=== PATIENT | male | born 1955 | race Caucasian/White ===

== ENCOUNTER 2021-03-01 12:40 | Inpatient (IN) | payer MEDICARE, OTHER ==
[~2021-03-01] VITALS: Ht 175.3 cm; Wt 81.6 kg
[2021-03-01] MEDS ORDERED: FLUO10CA29 PO (16:40)
[2021-03-01] MEDS ORDERED: LAMO200T10 PO (16:40)
[2021-03-01] MEDS ORDERED: LEVO25TA7 PO (16:40)
[2021-03-01] MEDS ORDERED: FINA5TAB11 PO (16:40)
[2021-03-01] MEDS ORDERED: TAMS-12 PO (16:40)
[2021-03-01] MEDS ORDERED: QUET100T PO (16:40)
[2021-03-01] MEDS ORDERED: QUET25TA PO (16:40)
[2021-03-01 18:10] VITALS: BP 155/52
[2021-03-01] MEDS ORDERED: MAGNESIUM HYDROXIDE 30 ML UDC PO PRN (18:30)
[2021-03-01] MEDS ORDERED: ACETAMINOPHEN 325 MG TABLET PO PRN (18:30)
[2021-03-01] MEDS ORDERED: LORAZEPAM 0.5 MG TABLET PO PRN (18:30)
[2021-03-01] MEDS ORDERED: BLOOD SUGAR DIAGNOSTIC 1 EACH STRIP IN ONE (18:30)
[2021-03-01] MEDS ORDERED: MAG HYDROX/AL HYDROX/SIMETH 30 ML UDC PO PRN (18:30)
--- NOTE | 2021-03-01 18:40 | NUR ---
Pt. arrived in the unit via ambulance and transported via a gurney with belongings. Pt. admitted on 5150 for DTS and GD. Per hold, pt. overdosed on Seroquel, admitted having severe anxiety and having difficulty functioning. V/S taken and contraband done. Dr. Avina made aware of the admission and with orders. Will endorse to the incoming shift for the completion of the admission.
[2021-03-01 20:00] VITALS: BP 153/66
[2021-03-01] MEDS ORDERED: HYDR-500 PO (20:09)
[2021-03-01] MEDS ORDERED: ZIPR20CA2 PO (20:09)
[2021-03-01 20:20] VITALS: BP 153/66
[2021-03-01] MEDS: clonazePAM 0.5 MG TABLET PO SCH (21:35)
--- NOTE | 2021-03-01 21:45 | NUR ---
RN NOTE PATIENT SEEN BY DR. CANALES WITH NEW ORDERS TO START KLONOPIN & RISPERDAL ORDERED. ORDERS NOTED & CARRIED OUT. WILL CONTINUE TO MONITOR.
[2021-03-01] MEDS: risperiDONE 1 MG TABLET PO SCH (22:01)
--- NOTE | 2021-03-01 22:15 | NUR ---
INFRASTRUCTURE TECH NOTES: ADMITTED THIS 65 Y/O MALE PATIENT FROM [facility] TO [facility] ON 5150 HOLD, PER HOLD GRAVELY DISABLED AND DANGER TO HIMSELF. PER HOLD, DEVON STATED," I TOOK TOO MANY SEROQUEL. I HAD LOT OF THINGS HAPPENING AND I WAS WALKING BACK AND FORTH ON THE SIDEWALK. I WAS HAVING A LOT OF ANXIETY ABOUT SEEING MY SISTER. I HAVE HAD A WISH BEFORE AND I AM HAVING PROBLEMS FUNCTIONING." PATIENT APPEARS ANXIOUS, DEPRESSED AND IS CURRENTLY IMPULSIVE AND UNSAFE FOR DISCHARGE.UPON FACE TO FACE ASSESSMENT, PATIENT IS A & O X 3 WITH PERIODS OF FORGETFULNESS (PER PATIENT). NOTED TO BE DISHEVELED, UNKEMPT, ANXIOUS, LABILE, RESTLESS, IMPULSIVE, HYPERVERBAL AT TIMES BUT REDIRECTABLE. PATIENT DENIES SI/HI AT THIS TIME, STATED," I DIDN'T TAKE TOO MANY SEROQUEL ON PURPOSE, I WAS TRYING TO CALM MYSELF DOWN DUE TO ANXIETY." PATIENT IS WILLING TO CONTRACT FOR SAFETY AT THIS TIME. PT. HAS POOR INSIGHT, POOR JUDGEMENT, PATIENT SIGNED ALL CONSENT FORMS. BOTH MD AWARE AND NOTIFIED OF THE ADMISSION, BELONGINGS CONTRABAND WERE DONE , NURSING ASSESSMENT DONE, PT. RIGHTS DISCUSS BY ENERGY CONSERVATION SPECIALIST, PROVIDED THE PT. WITH HANDBOOK AND MEDICATIONS GUIDE, ENVIRONMENTAL SAFETY CHECK DONE, NO ACUTE DISTRESS NOTED. NO C/O PAIN VERBALIZED AT THIS TIME. ENCOURAGED PT. VERBALIZED ANY FEELING CONCERN TO STAFF, ORIENTED TO UNIT POLICY, VITAL SIGNS WNL, WILL CONTINUE TO MONITOR FOR Q15 MIN FOR SAFETY, MOOD AND BEHAVIOR.
--- NOTE | 2021-03-01 23:00 | NUR ---
RN NOTE LUNA SUAREZ, PATIENT'S YOUNGER SISTER CALLED & SPOKE TO CHARGE NURSE. LUNA IS AWARE ABOUT PATIENT'S ADMISSION AT [facility].
--- NOTE | 2021-03-02 01:30 | NUR ---
MED RECON DONE BY CHELSEA HERRERA.
--- NOTE | 2021-03-02 04:08 | NUR ---
RN NOTE PATIENT HAS BEEN SLEEPING COMFORTABLY. NO ACUTE CHANGES NOTED.
[2021-03-02 07:51] LABS: CHOLESTEROL 135 mg/dL (<200); HDL CHOLESTEROL 58 mg/dL (40-60); LDL 57 mg/dL (0-99); TRIGLYCERIDES 80 mg/dL (30-150)
[2021-03-02 08:00] VITALS: BP 157/66
[2021-03-02 08:01] LABS: ALBUMIN 3.8 g/dL (3.4-5.0); BILIRUBIN,TOTAL 0.4 mg/dL (0.2-1.0); CALCIUM, SERUM 9.1 mg/dL (8.5-10.1); CREATININE 1.2 mg/dL (0.6-1.3); POTASSIUM 4.7 mmol/L (3.5-5.1); TOTAL PROTEIN, SERUM 7.5 g/dL (6.4-8.2)
[2021-03-02] MEDS: LEVOTHYROXINE SODIUM 25 MCG TABLET PO SCH (09:00)
[2021-03-02] MEDS: FINASTERIDE (5 MG) 5 MG TABLET PO SCH (09:00)
[2021-03-02] MEDS: risperiDONE 1 MG TABLET PO SCH ×2 (09:00→21:10)
[2021-03-02] MEDS: TAMSULOSIN 0.4 MG CAP.SR.24H PO SCH (09:00)
[2021-03-02] MEDS: clonazePAM 0.5 MG TABLET PO SCH ×2 (09:00→21:10)
--- NOTE | 2021-03-02 15:47 | NUR ---
RN-CO: Patient denied pain and discomforts.
[2021-03-02 16:00] VITALS: BP 128/79
[2021-03-02 20:00] VITALS: BP 142/59
[2021-03-02 20:42] VITALS: BP 142/59
[2021-03-03 08:00] VITALS: BP 127/74
[2021-03-03] MEDS: risperiDONE 1 MG TABLET PO SCH ×2 (08:14→20:29)
[2021-03-03] MEDS: clonazePAM 0.5 MG TABLET PO SCH ×2 (08:14→20:30)
[2021-03-03] MEDS: FINASTERIDE (5 MG) 5 MG TABLET PO SCH (08:14)
[2021-03-03] MEDS: TAMSULOSIN 0.4 MG CAP.SR.24H PO SCH (08:14)
[2021-03-03] MEDS: LEVOTHYROXINE SODIUM 25 MCG TABLET PO SCH (08:14)
--- NOTE | 2021-03-03 10:25 | NUR ---
RN NOTE: ANXIETY PT VISIBLY ANXIOUS. TREMBLING. REPORTS CONTINUED DEPRESSION AND SADNESS. DENIES SI AT PRESENT TIME. MEDICATED WITH ATIVAN 1MG PO PRN. WILL CONT TO MONITOR PT FOR SAFETY, BEHAVIOR AND EFFECTIVENESS OF PRN MEDICATION
[2021-03-03 16:00] VITALS: BP 147/56
[2021-03-03] MEDS: TEMAZEPAM 7.5 MG CAPSULE PO PRN (21:28)
--- NOTE | 2021-03-03 21:30 | NUR ---
Pt c/o insomnia. Least restrictive measures ineffective. Restoril 15 mg 2 caps given as ordered. Will continue to monitor.
--- NOTE | 2021-03-03 22:45 | NUR ---
Post 1 hr Restoril effective. Pt asleep in bed easy to arouse. Will continue to monitor. Frequent visual check done for safety.
[2021-03-04 08:00] VITALS: BP 123/87
[2021-03-04] MEDS: TAMSULOSIN 0.4 MG CAP.SR.24H PO SCH (08:35)
[2021-03-04] MEDS: clonazePAM 0.5 MG TABLET PO SCH ×2 (08:35→21:24)
[2021-03-04] MEDS: risperiDONE 1 MG TABLET PO SCH ×2 (08:35→21:24)
[2021-03-04] MEDS: LEVOTHYROXINE SODIUM 25 MCG TABLET PO SCH (08:35)
[2021-03-04] MEDS: FINASTERIDE (5 MG) 5 MG TABLET PO SCH (08:35)
--- NOTE | 2021-03-04 12:59 | NUR ---
Initial D/C Plan: The [facility] [address]; [phone]] alone and stated he would like to return there once ready for D/C. SW will continue to collaborate with IDT to ensure safe & proper D/C planning.
--- NOTE | 2021-03-04 14:34 | NUR ---
Point of Contact: PAGE called pt.'s sister, Lenora Wilson [phone] and left voicemail with call back number.
--- NOTE | 2021-03-04 14:38 | NUR ---
Interaction with pt: SW met with pt and informed him that he does not have a discharge date at this time.
[2021-03-04 16:00] VITALS: BP 124/57
--- NOTE | 2021-03-04 16:10 | NUR ---
Point of contact: PAGE received a phone call from Андрей lead case manager at [facility] ([phone]). PAGE informed lead case manager of pts medications. PAGE will keep lead case manager updated on pts discharge plan.
--- NOTE | 2021-03-04 16:38 | NUR ---
Patient Interaction: SW met with pt and informed him that his human services case manager Андрей from [facility] ([phone]) would like pt to call him. SW gave showcase maker's contact information to pt.
[2021-03-04 20:14] VITALS: BP 121/82
[2021-03-04] MEDS: FLUVOXAMINE MALEATE 50 MG TABLET PO SCH (22:40)
[2021-03-05 08:00] VITALS: BP 128/60
[2021-03-05] MEDS: LEVOTHYROXINE SODIUM 25 MCG TABLET PO SCH (08:22)
[2021-03-05] MEDS: TAMSULOSIN 0.4 MG CAP.SR.24H PO SCH (08:23)
[2021-03-05] MEDS: risperiDONE 1 MG TABLET PO SCH ×2 (08:23→21:01)
[2021-03-05] MEDS: clonazePAM 0.5 MG TABLET PO SCH ×2 (08:23→21:01)
[2021-03-05] MEDS: FLUVOXAMINE MALEATE 50 MG TABLET PO SCH ×3 (08:23→17:33)
[2021-03-05] MEDS: FINASTERIDE (5 MG) 5 MG TABLET PO SCH (08:23)
[2021-03-05] MEDS ORDERED: DEXTROSE 50%-WATER 50 ML DISP.SYRIN IV PRN (11:30)
[2021-03-05] MEDS ORDERED: INSULIN REGULAR, HUMAN 100 UNIT/ML 3 ML VIAL SQ PRN (11:30)
--- NOTE | 2021-03-05 11:51 | NUR ---
Point of Contact: Pt's sister, Lenora Wilson [phone], called the SW and asked about placement options. SW informed her about some SNF options and stated that the pt cannot be forced to go as no one has DPOA or conservatorship. SW stated that the pt is alert and oriented enough to make his own decision. SW stated that she will speak to the pt and inform him of this placement recommendation and go from there.
[2021-03-05] MEDS ORDERED: BLOOD SUGAR DIAGNOSTIC 1 EACH STRIP IN SCH (12:00)
[2021-03-05 16:06] VITALS: BP 108/56
[2021-03-05 19:54] VITALS: BP 126/74
[2021-03-06 08:00] VITALS: BP 104/59
[2021-03-06] MEDS: clonazePAM 0.5 MG TABLET PO SCH ×2 (08:14→21:08)
[2021-03-06] MEDS: TAMSULOSIN 0.4 MG CAP.SR.24H PO SCH (08:14)
[2021-03-06] MEDS: risperiDONE 1 MG TABLET PO SCH ×2 (08:15→21:08)
[2021-03-06] MEDS: FLUVOXAMINE MALEATE 50 MG TABLET PO SCH ×3 (08:15→16:04)
[2021-03-06] MEDS: FINASTERIDE (5 MG) 5 MG TABLET PO SCH (08:16)
[2021-03-06] MEDS: LEVOTHYROXINE SODIUM 25 MCG TABLET PO SCH (08:18)
[2021-03-06 16:02] VITALS: BP 128/60
[2021-03-06 20:04] VITALS: BP 124/92
[2021-03-07 08:00] VITALS: BP 122/75
[2021-03-07] MEDS: FLUVOXAMINE MALEATE 50 MG TABLET PO SCH ×3 (08:07→16:01)
[2021-03-07] MEDS: risperiDONE 1 MG TABLET PO SCH ×2 (08:07→21:01)
[2021-03-07] MEDS: LEVOTHYROXINE SODIUM 25 MCG TABLET PO SCH (08:07)
[2021-03-07] MEDS: clonazePAM 0.5 MG TABLET PO SCH ×2 (08:07→21:01)
[2021-03-07] MEDS: TAMSULOSIN 0.4 MG CAP.SR.24H PO SCH (08:08)
[2021-03-07] MEDS: FINASTERIDE (5 MG) 5 MG TABLET PO SCH (08:08)
--- NOTE | 2021-03-07 10:42 | NUR ---
Probable Cause Hearing: Pts 5250 hold was upheld for grave disability.
[2021-03-07 15:48] VITALS: BP 119/57
[2021-03-07 20:15] VITALS: BP 112/72
[2021-03-08 08:00] VITALS: BP 135/71
[2021-03-08] MEDS: risperiDONE 1 MG TABLET PO SCH ×2 (08:04→20:44)
[2021-03-08] MEDS: LEVOTHYROXINE SODIUM 25 MCG TABLET PO SCH (08:04)
[2021-03-08] MEDS: TAMSULOSIN 0.4 MG CAP.SR.24H PO SCH (08:04)
[2021-03-08] MEDS: FLUVOXAMINE MALEATE 50 MG TABLET PO SCH ×3 (08:04→16:10)
[2021-03-08] MEDS: FINASTERIDE (5 MG) 5 MG TABLET PO SCH (08:04)
[2021-03-08] MEDS: clonazePAM 0.5 MG TABLET PO SCH ×2 (08:05→20:44)
[2021-03-08 16:07] VITALS: BP 145/65
[2021-03-08 19:50] VITALS: BP_SYST 115; BP_SYST 124; BP_DIAS 61; BP_DIAS 65
--- NOTE | 2021-03-08 20:49 | NUR ---
[facility] RN NOTES: KLONOPIN 0.25MG GIVEN PO. PARTIAL DOSE WASTED PER MD ORDER AND WITNESSED BY ANOTHER RN.
--- NOTE | 2021-03-09 06:57 | NUR ---
[facility] RN NOTES: PATIENT IS CURRENTLY SLEEPING COMFORTABLY IN BED.PATIENT SLEPT 5 HR THIS SHIFT. COMPLIANT WITH MEDICATION THIS SHIFT. NO S/S OF DISTRESS. RESPIRATION EVEN AND UNLABORED WITH EQUAL RISE AND FALL OF THE CHEST ON ROOM AIR. ALL PATIENT CARE NEEDS HAVE BEEN MET ANTICIPATED. WILL CONTINUE TO MONITOR FOR SAFETY, MOOD, AND BEHAVIOR AND ENDORSE TO AM SHIFT.
[2021-03-09 08:00] VITALS: BP 125/70
[2021-03-09] MEDS: clonazePAM 0.5 MG TABLET PO SCH ×2 (08:03→20:59)
[2021-03-09] MEDS: FINASTERIDE (5 MG) 5 MG TABLET PO SCH (08:03)
[2021-03-09] MEDS: LEVOTHYROXINE SODIUM 25 MCG TABLET PO SCH (08:03)
[2021-03-09] MEDS: TAMSULOSIN 0.4 MG CAP.SR.24H PO SCH (08:03)
[2021-03-09] MEDS: FLUVOXAMINE MALEATE 50 MG TABLET PO SCH ×3 (08:03→16:53)
[2021-03-09] MEDS: risperiDONE 1 MG TABLET PO SCH ×2 (08:08→20:59)
[2021-03-09 16:00] VITALS: BP 107/89
--- NOTE | 2021-03-09 21:05 | NUR ---
[facility] RN NOTES: KLONOPIN 0.25MG GIVEN PO. PARTIAL DOSE WASTED PER MD ORDER AND WITNESSED BY ANOTHER RN.
[2021-03-09 22:58] VITALS: BP 103/63
[2021-03-10 08:00] VITALS: BP 104/66
[2021-03-10] MEDS: clonazePAM 0.5 MG TABLET PO SCH ×2 (08:27→21:33)
[2021-03-10] MEDS: LEVOTHYROXINE SODIUM 25 MCG TABLET PO SCH (08:27)
[2021-03-10] MEDS: risperiDONE 1 MG TABLET PO SCH ×2 (08:27→21:33)
[2021-03-10] MEDS: TAMSULOSIN 0.4 MG CAP.SR.24H PO SCH (08:28)
[2021-03-10] MEDS: FLUVOXAMINE MALEATE 50 MG TABLET PO SCH ×3 (08:28→16:39)
[2021-03-10] MEDS: FINASTERIDE (5 MG) 5 MG TABLET PO SCH (08:28)
[2021-03-10 16:00] VITALS: BP 98/63
[2021-03-10 20:00] VITALS: BP 142/62
[2021-03-10] MEDS: TEMAZEPAM 7.5 MG CAPSULE PO PRN (23:26)
[2021-03-11 08:00] VITALS: BP 102/76
--- NOTE | 2021-03-11 08:41 | NUR ---
Point of Contact: SW called pt.'s sister, Lenora Wilson ([phone]), to return her voicemail. She stated that she wanted to know if the psychiatrist has given the pt the first dose of the long acting medicine. SW looked on the system and stated that she did not see the shot being given. SW stated that she will speak to the MD as the pts sister stated that she had spoken to him and he stated that he would administer the medication. Pts sister also expressed her concern about the pts MD not calling the outside psychiatrist, Dr. Burr ([phone]). SW stated that she will reach out to the psychiatrist and remind him to make the call. SW reassured the pts sister that as soon as there is a discharge date she will inform her so that it can be coordinated with the other sister who has the keys to the pts apartment.
[2021-03-11] MEDS: FLUVOXAMINE MALEATE 50 MG TABLET PO SCH ×3 (09:52→16:56)
[2021-03-11] MEDS: TAMSULOSIN 0.4 MG CAP.SR.24H PO SCH (09:52)
[2021-03-11] MEDS: FINASTERIDE (5 MG) 5 MG TABLET PO SCH (09:52)
[2021-03-11] MEDS: LEVOTHYROXINE SODIUM 25 MCG TABLET PO SCH (09:52)
[2021-03-11] MEDS: clonazePAM 0.5 MG TABLET PO SCH ×2 (09:53→21:10)
[2021-03-11] MEDS: risperiDONE 1 MG TABLET PO SCH ×2 (09:55→21:10)
[2021-03-11] MEDS: LEVOTHYROXINE SODIUM 100 MCG TABLET PO SCH (10:28)
--- NOTE | 2021-03-11 11:30 | NUR ---
pt,s sister calling in earlier.
--- NOTE | 2021-03-11 12:00 | NUR ---
rn with call out to dr. fallon.informed to call pt's sister.additionally informed sister requesting invega injection med.this med not formulary here so md will call pt's sister regarding this.
--- NOTE | 2021-03-11 12:11 | NUR ---
Point of Contact: PAGE called the pts sister, Regine ([phone]), and left an SMS notification for a call back.
--- NOTE | 2021-03-11 12:12 | NUR ---
Point of Contact: SW called pt.'s sister, Lenora Wlison ([phone]), and left a voicemail that informed her that the SW would like a call back.
--- NOTE | 2021-03-11 13:57 | NUR ---
Outside MD Contact: PAGE contacted the office of Dr. Burr ([phone]) and made an appointment for the pt to be seen on March 13. Addendum: 03/12/21 at 0951 by PAGE FRIAS at 4:30pm.
--- NOTE | 2021-03-11 14:08 | NUR ---
Point of Contact: SW called pt.'s sister, Lenora Wilson ([phone]), and informed her that an appointment was made for follow up and that the SW will call the county and schedule a ride for the pt to be transferred back to his home.
[2021-03-11 16:00] VITALS: BP 113/56
[2021-03-11 20:00] VITALS: BP 133/71
[2021-03-11] MEDS: TEMAZEPAM 7.5 MG CAPSULE PO PRN (21:20)
[2021-03-12 08:00] VITALS: BP 129/76
[2021-03-12] MEDS: risperiDONE 1 MG TABLET PO SCH (08:28)
[2021-03-12] MEDS: TAMSULOSIN 0.4 MG CAP.SR.24H PO SCH (08:28)
[2021-03-12] MEDS: FLUVOXAMINE MALEATE 50 MG TABLET PO SCH ×2 (08:28→12:02)
[2021-03-12] MEDS: LEVOTHYROXINE SODIUM 100 MCG TABLET PO SCH (08:28)
[2021-03-12] MEDS: clonazePAM 0.5 MG TABLET PO SCH (08:29)
[2021-03-12] MEDS: FINASTERIDE (5 MG) 5 MG TABLET PO SCH (08:29)
--- NOTE | 2021-03-12 08:47 | NUR ---
Point of Contact: SW called pt's sister, Lenora Wilson ([phone]), and she stated that she does not understand why the pt cannot be transported by the [facility] and the SW stated that she received a voicemail from the coordinator of library services stating that there was no return agreement for this pt. SW suggested using [facility] as there is no family member that can picking machine operator the pt. SW stated that she will call and order a ride while the pts sister calls the [facility] for clarification.
--- NOTE | 2021-03-12 10:05 | NUR ---
Discharge Note: Pt will be back to his home located at [address] [place] [id number]; ([phone]). Pt will be picked up by [facility] at 1:30 PM. Pts sister, Lenora ([phone]), was informed of the discharge. Upon discharge, the pt appears to be in a euthymic mood and presents with an anxious affect. Pt denies both suicidal and homicidal ideation as well as auditory and visual hallucinations. Pt appears to be alert and oriented x4 (time, place, self and situation). Pt appears to be groomed and appropriately dressed. Pt will be under the care of psychiatrist, Dr. Burr, located at [address] [facility] [address] [address]; . Pt will also be under the care of his motion picture set up worker at [facility] located at [address] [place] [address]; . Pts multidisciplinary form was signed, completed, and a copy was given to the pt.
--- NOTE | 2021-03-12 13:45 | NUR ---
[facility] SENIOR SOFTWARE ENGINEER NOTE: PATIENT DISCHARGE HOME AT [address] [place] [id number]. PICKED UP BY [facility]. PATIENT A/OX4 ,SELF CARE, AMBULATORY . PATIENT DENIES SI/HI AVH,DENIES FEELING DEPRESSED, DENIES PAIN OR ANY DISCOMFORT, VSS. RX GIVEN AND EXPLAIN TO PT . PATIENT VERBALIZED UNDERSTANDING IMPORTANCE OF COMPLIANT WITH MEDICATIONS AND FOLLOW UP APT . EXIT CARE DONE, SIGN GIVEN TO PT. ALL BELONGINGS AND VALUABLES RETURNED TO PT. PATIENT SISTER INFORMED OF DISCHARGE . SKIN INTACT.
== END 2021-03-12 13:45 | disposition home or self-care (01) | DRG 885 ==
LOC: GPS 16:16
PROVIDERS: ADMIT Psychiatry & Neurology Psychiatry; ATTEND Family Medicine
DX: F25.9 Schizoaffective disorder, unspecified (principal); F41.9 Anxiety disorder, unspecified; E03.9 Hypothyroidism, unspecified; F32.9 Major depressive disorder, single episode, unspecified; N40.0 Benign prostatic hyperplasia without lower urinary tract symptoms; Z73.6 Limitation of activities due to disability; R73.9 Hyperglycemia, unspecified
CPT/HCPCS: 36415; 80053-TC; 80061-TC; 82962-TC; 87081-TC; J1815